=== PATIENT | female | born 1985 | race Caucasian/White ===

== ENCOUNTER 2018-07-14 06:19 | Emergency (ER) | payer MEDICAID ==
[~2018-07-14] VITALS: Ht 182.9 cm; Wt 139.7 kg
[~2018-07-14 06:19] MED LIST: TRAM50TA2 PO
[2018-07-14 06:28] VITALS: BP 137/82
== END 2018-07-14 07:56 | disposition home or self-care (01) ==
LOC: ER 06:19
DX: H10.021 Other mucopurulent conjunctivitis, right eye (principal)

== ENCOUNTER 2019-05-05 03:37 | Inpatient (IN) | payer MEDICAID ==
[~2019-05-05] VITALS: Ht 182.9 cm; Wt 143.3 kg
[2019-05-05] MEDS ORDERED: MORPHINE SULFATE 4 MG/ML SYR/VIAL IV ONE ×2 (06:30→08:30)
[2019-05-05] MEDS ORDERED: SODIUM CHLORIDE 0.9% 1,000 ML IV ONE (06:30)
[2019-05-05] MEDS ORDERED: ONDANSETRON HCL 4 MG/2 ML VIAL IV ONE (06:30)
[2019-05-05 06:36] LABS: Basophils # (auto) 0 10 ^3/uL (0-0.2); Basophils % (auto) 0.3 % (0.0-2.0); Eosinophils # (auto) 0.1 10 ^3/uL (0-0.8); Eosinophils % (auto) 0.7 % (0.0-7.0); Hematocrit 41.9 % (36.0-46.0); Hemoglobin 14.5 g/dL (12.2-16.2); Lymphocytes # (auto) 1.1 10 ^3/uL (0.4-5.4); Lymphocytes % (auto) 7.5 % (10.0-50.0); Mean Corpuscular Hemoglobin 31.4 pg (28.0-32.0); Mean Corpuscular Hgb Conc. 34.5 g/dL (32.0-36.0); Mean Corpuscular Volume 91.1 fL (80.0-100.0); Monocytes # (auto) 0.7 10 ^3/uL (0-1.3); Monocytes % (auto) 5.1 % (0.0-12.0); Neutrophils # (auto) 12.7 10 ^3/uL (1.6-8.6); Neutrophils % (auto) 86.4 % (37.0-80.0); Platelet Count (auto) 220 10^3/uL (140-450); Red Cell Distribution Width 13.1 % (11.8-14.3); White Blood Cell 14.6 10^3/uL (4.4-10.8)
[2019-05-05 06:52] LABS: Urine Bacteria FEW /hpf (None Seen); Urine Blood Negative /uL (Negative); Urine Mucus FEW (None Seen); Urine Specific Gravity 1.022 (1.001-1.035); Urine WBC 26 /hpf (0 - 5)
[2019-05-05 06:57] LABS: Albumin 3.8 g/dL (3.4-5.0); Calcium 8.7 mg/dL (8.5-10.1); Potassium 3.7 mmol/L (3.5-5.1)
[2019-05-05 07:01] LABS: BUN/Creatinine Ratio 10.1; Bilirubin, Total 0.7 mg/dL (0.2-1.0); Total Protein 8.3 g/dL (6.4-8.2)
[2019-05-05] MEDS ORDERED: metroNIDAZOLE 500MG/100ML 100 ML IV ONE (08:30)
[2019-05-05] MEDS: SODIUM CHLORIDE 0.9% 1,000 ML IV SCH ×2 (09:35→19:17)
[2019-05-05] MEDS: cefTRIAXone 1GM/50ML D5W 50 ML IV SCH (09:36)
[2019-05-05] MEDS ORDERED: ENOXAPARIN SOD 40 MG/0.4 ML SYRINGE SC SCH (10:00)
[2019-05-05] MEDS ORDERED: FAMOTIDINE 20 MG TAB PO SCH (10:00)
[2019-05-05] MEDS ORDERED: PANTOPRAZOLE 40 MG/10 ML VIAL INJ IV ONE (10:15)
[2019-05-05 12:15] LABS: Hematocrit 40.3 % (36.0-46.0); Hemoglobin 13.7 g/dL (12.2-16.2)
[2019-05-05 13:00] VITALS: BP 129/74
[2019-05-05] MEDS: traMADol HCL 50 MG TAB PO PRN ×2 (13:00→21:07)
[2019-05-05] MEDS: metroNIDAZOLE 500MG/100ML 100 ML IV SCH ×2 (14:16→22:17)
[2019-05-05] MEDS: PROMETHAZINE HCL 25 MG/ML 1ML IV PRN ×2 (15:34→21:08)
[2019-05-05 17:00] VITALS: BP 127/71
[2019-05-05 18:06] LABS: Hematocrit 38.3 % (36.0-46.0)
[2019-05-05 20:00] VITALS: BP 104/62
[2019-05-05 22:00] VITALS: BP 104/62
[2019-05-05] MEDS: PANTOPRAZOLE 40 MG TAB PO SCH (22:17)
[2019-05-06] VITALS (7 sets, daily range): BP systolic 119–126; BP diastolic 66–80
[2019-05-06] MEDS: SODIUM CHLORIDE 0.9% 1,000 ML IV SCH ×2 (04:53→15:36)
[2019-05-06] MEDS: traMADol HCL 50 MG TAB PO PRN (04:54)
[2019-05-06] MEDS: PROMETHAZINE HCL 25 MG/ML 1ML IV PRN ×2 (04:54→08:54)
[2019-05-06] MEDS: metroNIDAZOLE 500MG/100ML 100 ML IV SCH ×3 (06:03→22:04)
[2019-05-06 07:25] LABS: Basophils # (auto) 0 10 ^3/uL (0-0.2); Basophils % (auto) 0.4 % (0.0-2.0); Eosinophils # (auto) 0.2 10 ^3/uL (0-0.8); Eosinophils % (auto) 2.7 % (0.0-7.0); Hematocrit 37.5 % (36.0-46.0); Lymphocytes % (auto) 13.7 % (10.0-50.0); Mean Corpuscular Hemoglobin 32.1 pg (28.0-32.0); Mean Corpuscular Hgb Conc. 34.7 g/dL (32.0-36.0); Mean Corpuscular Volume 92.6 fL (80.0-100.0); Monocytes # (auto) 0.6 10 ^3/uL (0-1.3); Neutrophils # (auto) 5.6 10 ^3/uL (1.6-8.6); Neutrophils % (auto) 75.2 % (37.0-80.0); Nucleated Red Blood Cells % 0.1 %; Platelet Count (auto) 181 10^3/uL (140-450); Red Blood Cells 4.05 10^6/uL (4.0-5.20); Red Cell Distribution Width 13.6 % (11.8-14.3); White Blood Cell 7.4 10^3/uL (4.4-10.8)
[2019-05-06 07:32] LABS: INR 1.04 (0.9-1.15)
[2019-05-06] MEDS: cefTRIAXone 1GM/50ML D5W 50 ML IV SCH (08:45)
[2019-05-06] MEDS: ACETAMINOPHEN 500 MG TAB PO PRN (08:46)
[2019-05-06] MEDS: PANTOPRAZOLE 40 MG TAB PO SCH ×2 (09:28→22:04)
[2019-05-06] MEDS: ONDANSETRON HCL 4 MG/2 ML VIAL IV PRN ×2 (13:16→20:11)
[2019-05-06] MEDS: MORPHINE SULFATE 4 MG/ML SYR/VIAL IV PRN ×2 (13:16→20:28)
[2019-05-07] MEDS: traMADol HCL 50 MG TAB PO PRN ×3 (00:38→20:35)
[2019-05-07] MEDS: SODIUM CHLORIDE 0.9% 1,000 ML IV SCH ×4 (00:38→20:34)
[2019-05-07] MEDS: MORPHINE SULFATE 4 MG/ML SYR/VIAL IV PRN ×3 (04:54→18:48)
[2019-05-07] MEDS: ONDANSETRON HCL 4 MG/2 ML VIAL IV PRN ×3 (04:55→18:48)
[2019-05-07 05:00] VITALS: BP 127/73
[2019-05-07] MEDS: metroNIDAZOLE 500MG/100ML 100 ML IV SCH ×3 (05:11→22:15)
[2019-05-07 08:00] VITALS: BP 125/59
[2019-05-07] MEDS: cefTRIAXone 1GM/50ML D5W 50 ML IV SCH (09:31)
[2019-05-07] MEDS: PANTOPRAZOLE 40 MG TAB PO SCH ×2 (09:32→22:15)
[2019-05-07] MEDS ORDERED: GOLYTELY 4L KIT PO ONE (12:00)
[2019-05-07 12:30] VITALS: BP 127/75
[2019-05-07 17:08] VITALS: BP 100/73
[2019-05-07 20:05] VITALS: BP 120/66
[2019-05-07 22:00] VITALS: BP 120/66
[2019-05-08] MEDS: SODIUM CHLORIDE 0.9% 1,000 ML IV SCH ×3 (01:14→14:55)
[2019-05-08] MEDS ORDERED: GOLYTELY 4L KIT PO ONE (04:00)
[2019-05-08] MEDS: ONDANSETRON HCL 4 MG/2 ML VIAL IV PRN ×2 (04:39→09:23)
[2019-05-08] MEDS: MORPHINE SULFATE 4 MG/ML SYR/VIAL IV PRN (04:39)
[2019-05-08 05:00] VITALS: BP 103/47
[2019-05-08] MEDS: metroNIDAZOLE 500MG/100ML 100 ML IV SCH ×2 (06:16→14:00)
[2019-05-08] MEDS: traMADol HCL 50 MG TAB PO PRN (06:25)
[2019-05-08] MEDS ORDERED: diphenhdrAMINE HCL 50 MG/1 ML VL ONE (08:11)
[2019-05-08] MEDS ORDERED: SODIUM CHLORIDE LOCK 10 ML ONE (08:11)
[2019-05-08 08:42] VITALS: BP 103/62
[2019-05-08] MEDS: fentaNYL CITRATE 100 MCG/2 ML VL ONE ×2 (09:23→09:27)
[2019-05-08] MEDS: MIDAZOLAM HCL 5 MG/ML-1ML VIAL ONE ×3 (09:23→09:31)
[2019-05-08] MEDS: PANTOPRAZOLE 40 MG TAB PO SCH (11:02)
[2019-05-08] MEDS: cefTRIAXone 1GM/50ML D5W 50 ML IV SCH (11:02)
[2019-05-08 12:54] VITALS: BP 110/57
[2019-05-08] MEDS: ACETAMINOPHEN 500 MG TAB PO PRN (13:42)
[2019-05-08 13:56] VITALS: BP 110/57
== END 2019-05-08 16:12 | disposition home health service (06) | DRG 244 ==
LOC: ER 03:38 → OVERFLOW 03:39 → WEST WING 10:55
PROVIDERS: ADMIT Internal Medicine; ATTEND Family Medicine
PROC: 0DBG8ZX Excision of Left Large Intestine, Via Natural or Artificial Opening Endoscopic, Diagnostic (ICD-10-PCS; principal; 2019-05-08 09:19)
DX: K57.30 Diverticulosis of large intestine without perforation or abscess without bleeding (principal); E66.01 Morbid (severe) obesity due to excess calories; K64.8 Other hemorrhoids; Z68.41 Body mass index [BMI] 40.0-44.9, adult; R16.0 Hepatomegaly, not elsewhere classified; K52.9 Noninfective gastroenteritis and colitis, unspecified; F17.210 Nicotine dependence, cigarettes, uncomplicated; E86.0 Dehydration; Z90.49 Acquired absence of other specified parts of digestive tract; Z83.3 Family history of diabetes mellitus; Z80.8 Family history of malignant neoplasm of other organs or systems; Z82.3 Family history of stroke
CPT/HCPCS: 36415; 45380; 71046; 74176; 80053; 81001; 82270; 84702; 85014; 85018; 85025; 85045; 85610; 85652; 86141; 86850; 86870; 86880; 86900; 86901; 86905; 86906; 86971; 87040; 87045; 87086; 87427; 87493; 87804; 96361; 96365; 96375; 96376; C9113; G0378; J0696; J2250; J2405; J3490

== ENCOUNTER 2019-12-27 15:55 | Emergency (ER) | payer MEDICAID ==
[~2019-12-27] VITALS: Ht 185.4 cm; Wt 152.4 kg
[2019-12-27 16:31] LABS: Basophils # (auto) 0 10 ^3/uL (0-0.2); Basophils % (auto) 0.4 % (0.0-2.0); Eosinophils # (auto) 0.4 10 ^3/uL (0-0.8); Eosinophils % (auto) 3.5 % (0.0-7.0); Hematocrit 43.7 % (36.0-46.0); Hemoglobin 14.7 g/dL (12.2-16.2); Lymphocytes # (auto) 1.9 10 ^3/uL (0.4-5.4); Lymphocytes % (auto) 18.6 % (10.0-50.0); Mean Corpuscular Hemoglobin 30.7 pg (28.0-32.0); Mean Corpuscular Hgb Conc. 33.7 g/dL (32.0-36.0); Mean Corpuscular Volume 91.1 fL (80.0-100.0); Monocytes # (auto) 0.7 10 ^3/uL (0-1.3); Monocytes % (auto) 6.7 % (0.0-12.0); Neutrophils # (auto) 7.3 10 ^3/uL (1.6-8.6); Neutrophils % (auto) 70.8 % (37.0-80.0); Nucleated Red Blood Cells % 0.1 %; Platelet Count (auto) 273 10^3/uL (140-450); Red Cell Distribution Width 14.7 % (11.8-14.3); White Blood Cell 10.3 10^3/uL (4.4-10.8)
[2019-12-27 17:02] LABS: Alanine Aminotransferase 28 U/L (13-56); Albumin 3.7 g/dL (3.4-5.0); Anion Gap 2 (5-15); Blood Urea Nitrogen 14 mg/dL (7-18); Calcium 9.1 mg/dL (8.5-10.1); Carbon Dioxide 29 mmol/L (21-32); Chloride 108 mmol/L (98-107); Glucose 73 mg/dL (74-106); Potassium 4.3 mmol/L (3.5-5.1); Sodium 139 mmol/L (136-145)
[2019-12-27 17:06] LABS: Alkaline Phosphatase 76 U/L (45-117); Aspartate Aminotransferase 13 U/L (15-37); BUN/Creatinine Ratio 14.9; Bilirubin, Total 0.2 mg/dL (0.2-1.0); GFR African American 87 mL/min; GFR Non-African American 72 mL/min; Total Protein 8.1 g/dL (6.4-8.2)
[2019-12-27 17:46] VITALS: BP 148/99
== END 2019-12-27 17:56 | disposition home or self-care (01) ==
LOC: ER 15:55
DX: R07.89 Other chest pain (principal); R06.02 Shortness of breath; F17.210 Nicotine dependence, cigarettes, uncomplicated
CPT/HCPCS: 36415; 71046; 80053; 83880; 84484; 85025; 85379; 93005

== ENCOUNTER 2021-01-27 22:01 | Emergency (ER) | payer MEDICAID ==
[~2021-01-27] VITALS: Ht 182.9 cm; Wt 146.1 kg
[2021-01-27 22:01] VITALS: BP 131/88
== END 2021-01-27 22:45 | disposition left against medical advice (07) ==
LOC: ER 22:03
DX: R42 Dizziness and giddiness (principal); H53.8 Other visual disturbances; Z53.21 Procedure and treatment not carried out due to patient leaving prior to being seen by health care provider